=== PATIENT | female | born 1930 | race Caucasian/White ===

== ENCOUNTER 2019-06-23 23:10 | Emergency (ER) | payer MEDICARE, MEDICAID ==
--- NOTE | 2019-06-23 23:20 | EDM.PDOC ---
ED HPI GENERAL MEDICAL PROBLEM - General Chief Complaint: Laceration Stated Complaint: FALL Time Seen by Provider: 06/23/19 23:13 Source of Information: Reports: Patient History Limitations: Reports: No Limitations - History of Present Illness INITIAL COMMENTS - FREE TEXT/NARRATIVE: Rosaura comes into [facility] ED for repair of a scalp laceration that occurred about an hour ago when she fell in her apartment. There was no LOC. There is no other reported injury. Her tetanus vax status needs updating. - Related Data Allergies Allergy/AdvReac Type Severity Reaction Status Date / Time No Known Allergies Allergy Verified 02/27/14 08:07 Home Meds: Home Meds Latanoprost 1 drop PO ASDIRECTED 06/24/19 [History] Metoprolol Tartrate 25 mg PO 1700 06/24/19 [History] Metoprolol Tartrate 37.5 mg PO WITHBREAKFAST 06/24/19 [History] Timolol Maleate [Timoptic 0.25% Ophth Soln] 1 drop EYERT DAILY 06/24/19 [History ] azaTHIOprine [Imuran] 50 mg PO DAILY 06/24/19 [History] ED ROS GENERAL - Review of Systems Review Of Systems: Comprehensive ROS is negative, except as noted in HPI. ED EXAM, SKIN/RASH Exam: See Below Exam Limited By: No Limitations General Appearance: Alert, WD/WN, No Apparent Distress Eye Exam: Bilateral Eye: EOMI, Normal Inspection, PERRL Ears: Normal External Exam Nose: Normal Mucosa, Other (abrasion near rostrum R side) Throat/Mouth: Normal Inspection, Normal Oropharynx Head: Facial Tenderness (2.8 cm laceration to R anterior scalp, with some active bleeding, no step off; minor hematoma of R forehead) Neck: Normal Inspection, Supple, Non-Tender, Full Range of Motion Respiratory/Chest: Lungs Clear, Chest Non-Tender Cardiovascular: Regular Rate, Rhythm, No Murmur Back Exam: Normal Inspection Extremities: Normal Inspection Neurological: Alert, Oriented, CN II-XII Intact, Normal Cognition, No Motor/ Sensory Deficits Skin: Warm, Dry, Wound/Incision (2.8 cm laceration to R anterior scalp) ED SKIN PROCEDURES - Laceration/Wound Repair Right Anterior Head Appearance: Subcutaneous, Linear Distal NVT: Neuro & Vascular Intact Exploration/Debridement/Repair: Wound Explored, No Foreign Material Found Closed with: Demarcus Lac/Wound length In cm: 2.8 # of Sutures: 6 Drain Placement: No Sterile Dressing Applied: Nurse Tetanus Status Addressed: Yes Complications: No Course - Vital Signs Text/Narrative:: Patient tolerated procedure well. An Adacel booster was administered. Last Recorded V/S: Last Vital Signs Temp 36.2 C 06/23/19 23:10 Pulse 73 06/23/19 23:10 Resp 18 06/23/19 23:10 BP 190/86 H 06/23/19 23:10 Pulse Ox 97 06/23/19 23:10 - Orders/Labs/Meds Orders: Active Orders 24 hr Category Date Time Status Vaccines to be Administered [RC] PER UNIT ROUTINE Care 06/23/19 23:21 Active Meds: Medications Discontinued Medications Generic Name Dose Route Start Last Admin Trade Name Freq PRN Reason Stop Dose Admin Diphtheria/Tetanus/Acell Pertussis 0.5 ml 06/23/19 23:21 06/23/19 23:32 Adacel IM 06/23/19 23:22 0.5 ml .ONCE ONE Administration Departure - Departure Time of Disposition: 23:35 Disposition: Home, Self-Care 01 Condition: Good Clinical Impression: Laceration of scalp Qualifiers: Encounter type: initial encounter Qualified Code(s): S01.01XA - Laceration without foreign body of scalp, initial encounter - Discharge Information *PRESCRIPTION DRUG MONITORING PROGRAM REVIEWED*: Not Applicable *COPY OF PRESCRIPTION DRUG MONITORING REPORT IN PATIENT DANIEL: Not Applicable Instructions: Stitches, Walnut, or Adhesive Wound Closure Referrals: PCP,Unknown [Primary Care Provider] - Forms: ED Department Discharge Care Plan Goals: Demarcus out in 7 days at your regular clinic/dr - Problem List & Annotations (1) Laceration of scalp SNOMED Code(s): 953764604 Code(s): S01.01XA - LACERATION WITHOUT FOREIGN BODY OF SCALP, INITIAL ENCOUNTER Status: Acute Current Visit: No Annotation/Comment:: Routine wound cares, analgesic of choice, and staple removal in 1 week. Qualifiers: Encounter type: initial encounter Qualified Code(s): S01.01XA - Laceration without foreign body of scalp, initial encounter - Problem List Review Problem List Initiated/Reviewed/Updated: Yes - My Orders Last 24 Hours: My Active Orders 06/23/19 23:21 Vaccines to be Administered [RC] PER UNIT ROUTINE - Assessment/Plan Last 24 Hours: My Active Orders 06/23/19 23:21 Vaccines to be Administered [RC] PER UNIT ROUTINE Plan: Staple removal in 1 week.
[2019-06-23] MEDS ORDERED: Diphtheria,Pertussis(Acell),Tetanus Vaccine 0.5 ML SDV IM ONE (23:21)
== END 2019-06-24 00:05 | disposition home or self-care (01) ==
LOC: FB.ED 23:10
DX: S01.01XA Laceration without foreign body of scalp, initial encounter (principal); Z23 Encounter for immunization; W18.30XA Fall on same level, unspecified, initial encounter; W22.03XA Walked into furniture, initial encounter; Y92.038 Other place in apartment as the place of occurrence of the external cause
CPT/HCPCS: 12002; 90471; 90715; 99282-25